=== PATIENT | female | born 1990 | race Caucasian/White ===

== ENCOUNTER 2021-10-03 17:03 | Emergency (ER) | payer MEDICAID, SELFPAY ==
[2021-10-03 17:04] VITALS: BP 96/50; PULSE 93; RESP 18; TEMP 37.6; O2SAT 98; BMI 22.4
[2021-10-03 17:21] LABS: Basophils % 0.2 % (0.1-2.0); Eosinophils # 0.1 K/mm3 (0.0-0.4); Eosinophils % 1.1 % (0.1-12.0); Hematocrit 38.8 % (37.0-47.0); Hemoglobin 12.7 g/dL (12.2-16.2); Lymphocytes # 0.5 K/mm3 (0.7-4.5); Mean Corpuscular HGB Conc 32.8 g/dL (31.8-35.4); Mean Corpuscular Volume 88.4 fl (81-99); Mean Platelet Volume 8.2 fl (7.4-10.4); Monocytes # 0.4 K/mm3 (0.1-1.0); Monocytes % 4.3 % (1.7-9.3); Neutrophils # 9.1 K/mm3 (1.8-7.8); Neutrophils % 89.4 % (37.0-80.0); Platelet Count 230 K/mm3 (142-424); Red Blood Count 4.39 M/mm3 (4.20-5.40); Red Cell Distribution Width 15.5 % (11.5-17.5); White Blood Count 10.2 K/mm3 (4.8-10.8)
[2021-10-03 17:31] LABS: MANUAL DIFFERENTIAL MANUAL DIFFERENTIAL (MANUAL DIFF)
[2021-10-03 17:38] LABS: Alanine Aminotransferase 16 U/L (12-78); Albumin Level 4.3 g/dl (3.5-5.0); Albumin/Globulin Ratio 1.5 (1.1-1.8); Alkaline Phosphatase 68 U/L (38-126); Anion Gap 12.9 mEq/L (5-15); Aspartate Amino Transferase 31 U/L (14-36); Bilirubin,Total 0.8 mg/dl (0.2-1.3); Blood Urea Nitrogen 12 mg/dl (7-17); Calcium 8.3 mg/dl (8.4-10.2); Carbon Dioxide 20 mmol/L (22.0-30.0); Chloride 105 mmol/L (98-107); Creatinine Clearance Estimated 156 mL/min (50-200); Estimated Glomerular Filt Rate 146 ml/min (>60); GFR (African American) 177 ML/MIN (>60); Globulin 2.8 g/dL (1.3-3.2); Glucose 97 mg/dl (74-100); Sodium 135 mmol/L (136-145); Total Protein,Serum 7.1 g/dl (6.3-8.2)
[2021-10-03 17:41] LABS: HCG Qualitative, Serum Negative (Negative)
[2021-10-03 17:42] LABS: Potassium 2.9 mmoL/L (3.5-5.1)
--- NOTE | 2021-10-03 17:42 | PC.NURSE ---
CRITICAL K+ FROM LAB,INFORMED DR JACOBSON
--- NOTE | 2021-10-03 18:43 | HMH.EDGENADL ---
ED Disposition Clinical Impression: Gastroenteritis, Dehydration Disposition: Home, Self-Care Condition on Discharge: Good Instructions: DI for Nausea -- Adult, DI for Nausea -- Child, DI for Diarrhea and Traveler's Diarrhea -- Adult, DI for Diarrhea and Traveler's Diarrhea -- Child Additional Instructions: Please follow-up with your primary care provider, return to the ED with any new or worsening symptoms or difficulty eating or drinking. Prescriptions: Ondansetron [Zofran 4mg ODT] 4 mg PO Q6 PRN #12 tab PRN Reason: Nausea Transmission Status: Pending to [facility]/pharmacy #[id number] Referrals: Maddison Coulter APRN [Primary Care Provider] - - Critical Care Critical Care Time: No Attestation: On 10/03/21, the high probability of a clinically significant, sudden or life threatening deterioration of the following system(s) required my full and direct attention, intervention and personal management. The time I documented below is in addition to time spent performing reported procedures but includes the following listed in this critical care notation. Medical Decision Making - Medical Records Medical records reviewed: Yes: I reviewed the patient's medical records. - [place] Inquiry Pt receiving controlled substance: No Vital Signs: 10/03/21 17:04 Temperature 99.6 F Temperature Source Oral Pulse Rate [Radial] 93 H Respiratory Rate 18 Blood Pressure [Right Arm] 96/50 L Blood Pressure Mean [Right Arm] 65 Blood Pressure Position [Right Arm] Sitting 02 Sat by Pulse Oximetry 98 Oxygen Delivery Method Room Air - Lab Data Lab Results 10/03/21 17:12: WBC 10.2, RBC 4.39, Hgb 12.7, Hct 38.8, MCV 88.4, MCH 29.0, MCHC 32.8, RDW 15.5, Plt Count 230, MPV 8.2, Neut % (Auto) 89.4 H, Lymph % (Auto) 5.0 L, [place] % (Auto) 4.3, Eos % (Auto) 1.1, Baso % (Auto) 0.2, Neut # (Auto) 9.1 H, Lymph # (Auto) 0.5 L, [place] # (Auto) 0.4, Eos # (Auto) 0.1, Baso # (Auto) 0.0 10/03/21 17:12: Sodium 135 L, Potassium 2.9 L*, Chloride 105, Carbon Dioxide 20 L, Anion Gap 12.9, BUN 12, Creatinine 0.50 L, Estimated Creat Clear 156, Estimated GFR 146, Est GFR ( Amer) 177, Glucose 97, Calcium 8.3 L, Total Bilirubin 0.8, AST 31, ALT 16, Alkaline Phosphatase 68, Total Protein 7.1, Albumin 4.3, Globulin 2.8, Albumin/Globulin Ratio 1.5 10/03/21 17:12: Serum HCG, Qual Negative Result diagrams: 10/03/21 17:12 10/03/21 17:12 Orders (Tests/Meds): ED MEDICATIONS Generic Name Dose Route Start Last Admin Trade Name Freq PRN Reason Stop Dose Admin Sodium Chloride 1,000 mls @ 999 mls/hr 10/03/21 17:15 10/03/21 17:14 Sod Chlor 0.9% 1000ml Bag IV 10/03/21 18:15 Not Given .Q1H1M ZENIA Lactated Ringer's 1,000 mls @ 999 mls/hr 10/03/21 17:15 10/03/21 17:16 Lactated Ringer's 1000 Ml Bag IV 10/03/21 18:15 999 mls/hr .Q1H1M ZENIA Administration Discontinued Medications Generic Name Dose Route Start Last Admin Trade Name Freq PRN Reason Stop Dose Admin Ondansetron HCl 4 mg 10/03/21 17:07 10/03/21 17:14 Ondansetron 4mg/2ml Vial IV 10/03/21 17:08 4 mg ONCE ONE Administration Potassium Chloride 40 meq 10/03/21 17:44 10/03/21 17:47 Potassium Chloride 20meq Tab PO 10/03/21 17:45 40 meq ONCE ONE Administration ORDERS Category Date Time Status CBC w/Auto Diff [Complete Blood Count Auto Diff] Stat Lab 10/03/21 17:12 Results Urinalysis-Acute [Urinalysis and Microscopic] Stat Lab 10/03/21 17:06 Ordered Medical Decision Narrative: Patient is a 31-year-old female who presents the ED today for further evaluation of epigastric abdominal pain, nausea, vomiting. Patient is well-appearing on initial evaluation, likely history presents with gastroenteritis, although other differentials considered such as gastritis, gallbladder disease, appendicitis, colitis, enteritis. Patient feels symptomatically improved after reevaluation with 1 L of IV fluids ongoing of 4 mg of IV Zofran, patient's potassium found to be
[2021-10-03 18:57] VITALS: BP 108/64; PULSE 91; RESP 16; TEMP 37.1; O2SAT 99
[2021-10-03 19:06] LABS: Eosinophils % 1 % (0-3); Lymphocytes % 3 % (10-50); Monocytes % 6 % (2-9); Neutrophils % 90 % (42-76); Platelet Estimate Normal; Total Cells Counted 100
== END 2021-10-03 18:59 | disposition home or self-care (01) ==
PROVIDERS: Emergency Provider Student in an Organized Health Care Education/Training Program; PCP Nurse Practitioner
DX: K52.9 Noninfective gastroenteritis and colitis, unspecified (principal); E86.0 Dehydration; F17.210 Nicotine dependence, cigarettes, uncomplicated
CPT/HCPCS: 80053; 84703; 85007; 85025; 96365; 96375; 99284; J2405

== ENCOUNTER 2022-09-12 17:45 | Emergency (ER) | payer MEDICAID, SELFPAY ==
[2022-09-12 17:46] VITALS: BP 146/84; PULSE 83; RESP 17; TEMP 37; O2SAT 100; BMI 21.0
--- NOTE | 2022-09-12 18:13 | CT_ITS ---
PROCEDURE INFORMATION: Exam: CT Abdomen And Pelvis With Contrast Exam date and time: 09/12/2022 6:52 PM Age: 32 years old Clinical indication: Abdominal pain; Generalized; Additional info: Abd pain TECHNIQUE: Imaging protocol: Computed tomography of the abdomen and pelvis with contrast. Radiation optimization: All CT scans at this facility use at least one of these dose optimization techniques: automated exposure control; mA and/or kV adjustment per patient size (includes targeted exams where dose is matched to clinical indication); or iterative reconstruction. Contrast material: ISOVUE; Contrast volume: 75 ml; Contrast route: IV; REPORTING DATA: Count of CT and Cardiac NM exams in prior 12 months: This patient has received 0 known CTs and 0 known cardiac nuclear medicine studies in the 12 months prior to the current study. COMPARISON: ABDPELW/O CT ABD PELVIS W/O CONTRAST 06/13/2017 6:26 PM FINDINGS: Liver: There is a 3.3 cm area of heterogeneous enhancement at the tip of the right lobe of the liver (axial images 52 through 58). This is favored to represent a benign hepatic hemangioma. Liver is otherwise unremarkable. Gallbladder and bile ducts: Normal. No calcified stones. No ductal dilation. Pancreas: Normal. No ductal dilation. Spleen: Normal. No splenomegaly. Adrenal glands: Normal. No mass. Kidneys and ureters: Normal. No hydronephrosis. Stomach and bowel: Unremarkable. No obstruction. No mucosal thickening. Appendix: No evidence of appendicitis. Intraperitoneal space: Unremarkable. No free air. No significant fluid collection. Vasculature: Unremarkable. No abdominal aortic aneurysm. Lymph nodes: Unremarkable. No enlarged lymph nodes. Urinary bladder: Unremarkable as visualized. Reproductive: 3.8 cm simple appearing left ovarian cyst noted. The uterine cervix appears mildly prominent size with suggestion of surrounding fatty stranding, raising concern for cervicitis. Uterus is otherwise unremarkable. There are findings suggesting right hydrosalpinx. Bones/joints: Unremarkable. No acute fracture. Soft tissues: Unremarkable. IMPRESSION: 1. Moderately abnormal appearance of the uterine cervix raising concern for cervicitis/PID. Findings suggesting right hydrosalpinx also noted. 3.8 cm simple appearing left ovarian cysts suggests physiologic cyst. These findings could be further evaluated with sonography. 2. 3.3 cm area of heterogeneous enhancement of the tip of the right lobe of the liver favored to represent hemangioma. Further evaluation with multiphase liver protocol CT recommended for full characterization.
[2022-09-12 18:17] LABS: Microscopic, Urine URINE MICROSCOPIC (MICROSCOPIC)
[2022-09-12 18:19] LABS: Appearance,Urine CLEAR (Clear); Bilirubin,Urine Negative (Negative); Blood, Urine Negative (Negative); Color,Urine YELLOW (Yellow); Glucose,Urine (UA) Negative (Negative); Ketones,Urine Negative (Negative); Leukocyte Esterase,Urine Negative (Negative); Nitrate,Urine Negative (Negative); Protein,Urine Negative (Negative); Urobilinogen,Urine 0.2 EU/dl (0.2)
--- NOTE | 2022-09-12 18:22 | HMH.EDABDPAI ---
Discharge Plan Disposition Patient Disposition: Home, Self-Care Condition: Good Prescriptions Prescriptions: New dicyclomine 20 mg tablet 20 mg PO TID PRN (Reason: cramps) Qty: 14 0RF metronidazole 500 mg tablet 500 mg PO BID 7 Days Qty: 14 0RF No Action buspirone 10 mg tablet 10 mg PO TID Label Comments: TAKE 1 TABLET BY MOUTH THREE TIMES A DAY NEEDED Referrals Follow up/Referrals: Betsy Gold DO [Staff Physician] - See instructions Provider,Referral, [Primary Care Provider] - See instructions Activity Restrictions/Add. Instructions Additional Instructions/Restrictions: Return immediately for worsening pain or other concerns. Is very important that you follow-up with a drafter electronic soon as possible, this week. You may have a sexually transmitted infection. It is important to be promptly evaluated and avoid unprotected intercourse in the meantime Clinical Impressions Clinical Impression: Abdominal pain, Hydrosalpinx Stand Alone Forms Stand Alone Forms: Work/School Release Instructions Patient Instructions: DI for Acute Abdominal Pain Discharge ED Provider: Daron Pimentel Abdominal Pain HPI General Chief Complaint: Abdominal Pain Stated Complaint: servere stomach pain,nausea Time Seen by Provider: 09/12/22 18:02 Mode of Arrival: Ambulatory Source of Information: Patient Limitations: No Limitations Description of Symptoms (Recalled from ER Triage Doc. by RN): 32 F presents with an acute episode of generalized abdominal pain. Reports this pain in different from previous episodes that she has experienced in the past. This pain radiates around to her right flank. Denies fever, chills, vomiting, diarrhea, dysuria. Positive for nausea when pain is at it's worse. History of Present Illness HPI narrative: Patient presents complaining of right-sided abdominal discomfort with associated nausea that began yesterday. Symptoms began after having eaten [employer] pizza. She describes symptoms as waxing and waning right now she states the discomfort is minimal Related Data Home Medications Medication Instructions Recorded Confirmed buspirone 10 mg tablet 10 mg PO TID Mood 09/12/22 09/12/22 Previous Rx's Medication Instructions Recorded dicyclomine 20 mg tablet 20 mg PO TID PRN cramps #14 tabs 09/12/22 metronidazole 500 mg tablet 500 mg PO BID 7 days #14 tabs 09/12/22 Allergies Allergy/AdvReac Type Severity Reaction Status Date / Time No Known Allergies Allergy Verified 06/04/18 09:28 [facility] Disclaimer: The information contained in this section may have been updated after the patient was seen, as this information can be updated by other users. Social History Smoking Status: Never smoker alcohol intake: current current occupational status: employed Travel in the last 8 weeks: None ROS Obtained: Yes All systems reviewed & no additional complaints except as documented Physical Exam General General appearance: alert and in no apparent distress Head Head exam: atraumatic, normocephalic and normal inspection Eye Eye exam: Present normal appearance, PERRL and EOMI ENT ENT exam: Present normal exam, normal oropharynx, mucous membranes moist, TM's normal bilaterally and normal external ear exam Neck Neck exam: Present normal inspection, full ROM and trachea midline; Absent meningismus or lymphadenopathy Chest Chest inspection: Present normal inspection and symmetric chest wall rise; Absent tenderness Respiratory Respiratory exam: Present normal lung sounds bilaterally; Absent respiratory distress Cardiovascular Cardiovascular exam: Present regular rate and normal rhythm; Absent JVD Abdominal Exam Abdominal exam: Present soft and normal bowel sounds; Absent distention, tenderness or guarding Extremities Exam Extremities exam: Present normal inspection, full ROM and normal capillary refill; Absent calf tend
[2022-09-12 18:23] LABS: Chloride 106 mmol/L (98-107); Potassium 3.7 mmoL/L (3.5-5.1); Sodium 138 mmol/L (136-145)
[2022-09-12 18:25] LABS: Blood Urea Nitrogen 10 mg/dl (7-17); Creatinine Clearance Estimated 124 mL/min (50-200); Estimated Glomerular Filt Rate 117 ml/min (>60); GFR (African American) 142 ML/MIN (>60)
[2022-09-12 18:26] LABS: Alanine Aminotransferase 15 U/L (12-78); Albumin Level 4.6 g/dl (3.5-5.0); Albumin/Globulin Ratio 1.4 (1.1-1.8); Alkaline Phosphatase 42 U/L (38-126); Anion Gap 7.7 mEq/L (5-15); Aspartate Amino Transferase 27 U/L (14-36); Bilirubin,Total 0.3 mg/dl (0.2-1.3); Calcium 9.1 mg/dl (8.4-10.2); Carbon Dioxide 28 mmol/L (22.0-30.0); Globulin 3.2 g/dL (1.3-3.2); Glucose 103 mg/dl (74-100); Lipase 114 U/L (23-300); Total Protein,Serum 7.8 g/dl (6.3-8.2)
[2022-09-12 18:40] LABS: HCG Qualitative, Serum Negative (Negative)
[2022-09-12 18:46] LABS: Basophils # 0.1 K/mm3 (0-0.2); Basophils % 1.3 % (0.1-2.0); Eosinophils # 0.1 K/mm3 (0.0-0.4); Eosinophils % 1.7 % (0.1-12.0); Hematocrit 40.5 % (37.0-47.0); Lymphocytes # 2.8 K/mm3 (0.7-4.5); Lymphocytes % 34.7 % (10-50); Mean Corpuscular HGB Conc 32.2 g/dL (31.8-35.4); Mean Corpuscular Hemoglobin 28.7 pg (27.0-31.2); Mean Corpuscular Volume 89.1 fl (81-99); Monocytes # 0.5 K/mm3 (0.1-1.0); Monocytes % 5.7 % (1.7-9.3); Neutrophils # 4.6 K/mm3 (1.8-7.8); Neutrophils % 56.6 % (37.0-80.0); Platelet Count 298 K/mm3 (142-424); Red Blood Count 4.55 M/mm3 (4.20-5.40); White Blood Count 8.2 K/mm3 (4.8-10.8)
[2022-09-12 19:27] VITALS: BP 130/77; PULSE 71; RESP 16; O2SAT 100
--- NOTE | 2022-09-12 19:28 | PC.NURSE ---
checked on pt at this time, pt states no needs, notified her ER MD states he is viewing her ct scan results at this time.
--- NOTE | 2022-09-12 19:39 | PC.NURSE ---
accompanied ER MD to bs during discussion of POC and test results. list of doctors accepting will be given to pt at d/c for f/u with avian keeper
[2022-09-12 19:46] LABS: Bacteria,Urine Trace /lpf; Squamous Epithelial Cell,Urine Occasional #/hpf (0-5); WBC,Urine Occasional #/hpf (0-3)
--- NOTE | 2022-09-12 20:04 | PC.NURSE ---
per lab can't use the wet prep swab sent up to lab, states the top came off in the tube luis. Notified ER states does not want to recollect r/t already treating pt
[2022-09-12 20:18] VITALS: BP 124/69; PULSE 79; RESP 17; TEMP 36.9; O2SAT 98
[2022-09-15 06:04] LABS: Neisseria gonorrhoeae, NAA Negative (Negative)
== END 2022-09-12 20:19 | disposition home or self-care (01) ==
PROVIDERS: Emergency Provider Emergency Medicine
DX: N70.91 Salpingitis, unspecified (principal); R10.84 Generalized abdominal pain
CPT/HCPCS: 74177; 80053; 81001; 83690; 84703; 85025; 87491; 87591; 96361; 96374; 96375; 96376; 99285; J0696; J2405; Q9967